=== PATIENT | female | born 2000 | race Caucasian/White ===

== ENCOUNTER 2022-12-06 16:20 | Emergency (ER) | payer SELFPAY ==
[~2022-12-06] VITALS: Ht 152.4 cm; Wt 47.6 kg
--- NOTE | 2022-12-06 16:28 | NUR ---
1) Observed to has: a) blister some burst and some intact under foot and round foot b) Healing sores on the sheen c) unable to assess the whole body because patient is aggressive
--- NOTE | 2022-12-06 16:30 | NUR ---
Restraints - bilateral wrist restraints
--- NOTE | 2022-12-06 16:35 | NUR ---
Aggressive a racially abusive to RN - Had to call security for help with: 1) Changing wet clothes 2) Lab withdrawal 3) Not able to insert iv acces
[2022-12-06] MEDS ORDERED: diphenhydrAMINE 50 MG/1 ML VIAL ONE (16:41)
[2022-12-06] MEDS ORDERED: HALOPERIDOL LACTATE 5 MG/1 ML VIAL ONE (16:42)
[2022-12-06] MEDS ORDERED: LORAZEPAM 2 MG/1 ML VIAL ONE (16:43)
[2022-12-06] MEDS ORDERED: diphenhydrAMINE 50 MG/1 ML VIAL IM ONE (16:45)
[2022-12-06] MEDS ORDERED: HALOPERIDOL LACTATE 5 MG/1 ML VIAL IM ONE (16:45)
[2022-12-06] MEDS ORDERED: LORAZEPAM 2 MG/1 ML VIAL IM ONE (16:45)
--- NOTE | 2022-12-06 16:50 | NUR ---
Benadryl, Ativan, and Haroperidol administered as prescribed - await effect
[2022-12-06] MEDS ORDERED: IV NORMAL SALINE 1000 ML BAG IV ONE (18:45)
[2022-12-06 18:46] LABS: ETHANOL 229 MG/DL (0-0)
[2022-12-06 18:48] LABS: HEMATOCRIT 41.5 % (31.2-41.9); MEAN CORPUSCULAR HEMOGLOBIN 32.4 uug (24.7-32.8); MEAN CORPUSCULAR VOLUME 98.1 fL (75.5-95.3); PLATELET COUNT (AUTO) 321 K/uL (179-408)
[2022-12-06] MEDS ORDERED: THIAMINE HCL 100 MG TABLET PO ONE (19:00)
--- NOTE | 2022-12-06 19:09 | NUR ---
20g FA INSERTED AND SECURED WITH BANDAGE
--- NOTE | 2022-12-06 19:45 | NUR ---
Received report from Nannette MCDERMOTT.
[2022-12-06 19:52] LABS: ACETAMINOPHEN < 2.0 ug/mL (10-30); ALANINE AMINOTRANSFERASE 88 U/L (14-59); ALKALINE PHOSPHATASE 69 U/L (50-136); ASPARTATE AMINOTRANSFERASE 28 U/L (15-37); BILIRUBIN,DIRECT < 0.1 mg/dL (0.0-0.2); BILIRUBIN,TOTAL 0.3 mg/dL (0.2-1.0); CARBON DIOXIDE 23 mmol/L (21-32); CHLORIDE 111 mmol/L (98-107); CREATININE 0.7 mg/dL (0.6-1.3); GLUCOSE 96 mg/dL (74-106); POTASSIUM 3.9 mmol/L (3.5-5.1); TOTAL PROTEIN, SERUM 7.4 g/dL (6.4-8.2); UREA NITROGEN, BLOOD 11 mg/dL (7-18)
--- NOTE | 2022-12-06 20:25 | NUR ---
Leg restraints removed as patient has calmed down and is quiet.
[2022-12-06] MEDS ORDERED: THIAMINE HCL INJ 100 MG in IV DEXTROSE 5% 50 ML IV SCH (20:30)
[2022-12-06] MEDS ORDERED: IV NS 1000 ML 1,000 ML IV ONE (20:30)
[2022-12-06] MEDS ORDERED: THIAMINE HCL 200 MG/2 ML VIAL ONE (20:39)
[2022-12-06 21:08] LABS: *BILIRUBIN,URIN NEGATIVE (NEGATIVE); *CLARITY,URINE CLEAR (CLEAR); *COLOR,URINE YELLOW (YELLOW); *KETONES,URINE NEGATIVE (NEGATIVE); *UROBILINOGEN,URINE 0.2 E.U./dl (NORMAL); LEUKOCYTE ESTERASE ,URINE 2+ (NEGATIVE); NITRITE, URINE NEGATIVE (NEGATIVE); UGLUCOSE NEGATIVE (NEGATIVE)
[2022-12-06 21:09] LABS: *BLOOD, URINE 1+ (NEGATIVE); RBC,URINE 0-3 /HPF (0-3)
[2022-12-06 21:21] LABS: *AMPHETAMINE, URINE NEGATIVE (NEGATIVE); *CANNABINOID, URINE NEGATIVE (NEGATIVE); *COCCAINE, URINE NEGATIVE (NEGATIVE); *PHENCYCLIDINE SCREEN,URINE NEGATIVE (NEGATIVE)
--- NOTE | 2022-12-07 01:32 | NUR ---
Pt is in room sleeping comfortably.
--- NOTE | 2022-12-07 01:55 | NUR ---
Patient is sleeping. Restraints removed. Skin is intact.
--- NOTE | 2022-12-07 04:45 | NUR ---
Patient is in room sleeping and was able to state her name and birthday and fell back asleep.
--- NOTE | 2022-12-07 07:10 | NUR ---
Gave report to Jose MCDERMOTT.
--- NOTE | 2022-12-07 07:30 | NUR ---
Received patient awake and alert. Pt ambulated to restroom with steady gait. Pt was re-evaluated by ER physician and is pending discharge. Pt requested food, breakfast tray ordered.
--- NOTE | 2022-12-07 07:55 | NUR ---
Written and verbal after care instructions given. Patient verbalizes understanding of instructions. Pt is eating breakfast.
--- NOTE | 2022-12-07 07:56 | NUR ---
IV removed. Catheter intact and site benign. Pressure and 4x4 gauze applied to site. No bleeding noted.
--- NOTE | 2022-12-07 08:28 | NUR ---
[facility] consult requested for a patient in the ER for homeless, substance abuse, and mental health resources. Patient is a 22 year old female that is alert and oriented X4. Patient presents with depressed mood and congruent affect. Patient appears lethargic. 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 Patient states she is homeless and [facility] provided the patient with resources for [facility] [place] [address] [place] [address] ([phone]) and [facility] [address] [facility] [address] ([phone]). [facility] gave resources for [facility] [address] [facility] [address]. Patient signed the homeless waiver, and a copy was placed in the chart. Patient states she she smokes weed but denies a history of substance abuse. The patient's alcohol level was 229 and [facility] provided the patient with substance abuse resources for [facility] [address] [facility] [address] ([phone]), [facility] [address] [facility] [address] ([phone]), and [facility] [address] [place] [address] ([phone]). Patient appears unmotivated for treatment. Patient states she has a history of depression and anxiety and denies suicidal or homicidal ideation. Patient states she does not have a therapist or psychiatrist and [facility] provided the patient with the mental health resource for [facility] ([phone]) [address] [facility] [address]. Patient requests a TAP card for discharge and [facility] provided her with a TAP card. Patient states her plan for discharge is to follow up with the resources provided and [facility] informed nurse, Jose.
--- NOTE | 2022-12-07 09:40 | NUR ---
Pt ambulated out of the ER with steady gait. Pt was given referrals and a TAP card for the bus by social media senior associate.
== END 2022-12-07 09:43 | disposition home or self-care (01) ==
LOC: ER 16:20 → EDBD 16:20 → ER 12-07 09:43
DX: T65.91XA Toxic effect of unspecified substance, accidental (unintentional), initial encounter (principal); R41.82 Altered mental status, unspecified; Y92.89 Other specified places as the place of occurrence of the external cause; Z78.1 Physical restraint status; F10.129 Alcohol abuse with intoxication, unspecified
CPT/HCPCS: 80076; 80048; 81001; 82607; 85025; 36415; 99291; 96361; 96365; 96372; 80299; 80320; 80307; J1200; J1630; J2060; J3411; J7040; C1758; G0480